=== PATIENT | female | born 1955 | race Caucasian/White ===

== ENCOUNTER 2021-12-12 09:31 | Outpatient (CLI) | payer MEDICARE, OTHER | END 2021-12-12 09:32 | disposition home or self-care (01) | LOC: BURRAD 09:31 | PROVIDERS: ATTEND Urology | DX: N20.0 Calculus of kidney (principal) | CPT/HCPCS: 74018 ==

== ENCOUNTER 2023-03-05 16:44 | Outpatient (CLI) | payer MEDICARE, OTHER | END 2023-03-05 16:45 | disposition home or self-care (01) | LOC: BURRAD 16:44 | PROVIDERS: ATTEND Family Medicine | DX: M62.830 Muscle spasm of back (principal); M48.02 Spinal stenosis, cervical region; M47.814 Spondylosis without myelopathy or radiculopathy, thoracic region; M47.812 Spondylosis without myelopathy or radiculopathy, cervical region; Z98.1 Arthrodesis status | CPT/HCPCS: 72040; 72072 ==